=== PATIENT | female | born 1995 | race Caucasian/White ===

== ENCOUNTER 2019-05-11 20:37 | Emergency (ER) | payer BC ==
[~2019-05-11] VITALS: Ht 162.6 cm; Wt 52.2 kg
[2019-05-11 21:00] VITALS: BP_SYST 126
--- NOTE | 2019-05-11 23:40 | NUR ---
Called pt x 3, no answer
--- NOTE | 2019-05-11 23:40 | NUR ---
Patient left without being seen. No further treatment provided. ER MD aware
== END 2019-05-11 23:40 | disposition left against medical advice (07) ==
LOC: SED 20:37
DX: R51 Headache (principal); Z53.21 Procedure and treatment not carried out due to patient leaving prior to being seen by health care provider

== ENCOUNTER 2019-05-12 23:48 | Emergency (ER) | payer BC ==
[~2019-05-12] VITALS: Ht 162.6 cm; Wt 52.2 kg
[2019-05-13 00:31] VITALS: BP_SYST 117
--- NOTE | 2019-05-13 00:35 | NUR ---
Patient triaged and placed in waiting room. VSS and patient appears in no acute distress at this time. Provided with urine cup for urine sample collection. Accompanied by self, awaiting available bed, and MD notified of need for MSE.
--- NOTE | 2019-05-13 03:40 | NUR ---
Pt ambulatory to bed 8 for evaluation
--- NOTE | 2019-05-13 03:40 | NUR ---
Pt came in to the ER for evaluation re: head injury which occurred on Saturday. Stated that she was walking and accidentally walked into a pole. She denied any LOC or neck injury. She reported that her headache has been 8/10 ps. She was in the ER last night for same symptoms but left AMA because she had to go to work. She denied taking pain medication today. Pt AAO x 4, with normal breathing, skin normal and warm to the touch. No other remarkable symptoms noted. Awaiting ER MD to leandro.
--- NOTE | 2019-05-13 03:45 | NUR ---
ER MD Figueroa discussed with pt the CT result
--- NOTE | 2019-05-13 03:45 | NUR ---
ER at bedside examining patient.
[2019-05-13] MEDS ORDERED: ACETAMINOPHEN 325 MG TABLET PO ONE (04:00)
[2019-05-13 04:15] VITALS: BP_SYST 115
--- NOTE | 2019-05-13 04:15 | NUR ---
Patient given written and verbal discharge instructions and verbalizes understanding. ER MD discussed with patient the results and treatment provided. Patient in stable condition. ID arm band removed. No Rx given. Patient educated on pain management and to follow up with PMD. Pain Scale 5/10. Opportunity for questions provided and answered.
== END 2019-05-13 04:15 | disposition home or self-care (01) ==
LOC: SED 23:48
DX: S09.90XA Unspecified injury of head, initial encounter (principal); W22.8XXA Striking against or struck by other objects, initial encounter; Y93.01 Activity, walking, marching and hiking; Y92.89 Other specified places as the place of occurrence of the external cause; Y99.8 Other external cause status
CPT/HCPCS: 70450-TC; 81025; 99284